=== PATIENT | male | born 1960 | race African-American/Black ===

== ENCOUNTER 2017-06-18 13:37 | Emergency (ER) | payer OTHER ==
[2017-06-18] MEDS ORDERED: MORPHINE SULFATE 4 MG/ML DISP.SYRIN. (15:04)
[2017-06-18] MEDS ORDERED: ONDANSETRON PF 4 MG/2 ML VIAL. (15:04)
[2017-06-18] MEDS: DIPHTH,PERTUSS(ACELL),TET TOX 0.5 ML DISP.SYRIN. VAX IM (15:20)
[2017-06-18] MEDS: ONDANSETRON PF 4 MG/2 ML VIAL. IV (15:21)
[2017-06-18] MEDS: MORPHINE SULFATE 4 MG/ML DISP.SYRIN. IV (15:22)
== END 2017-06-18 15:27 | disposition short-term general hospital (02) ==
LOC: ER 13:37
DX: S05.31XA Ocular laceration without prolapse or loss of intraocular tissue, right eye, initial encounter (principal); S01.111A Laceration without foreign body of right eyelid and periocular area, initial encounter; S01.81XA Laceration without foreign body of other part of head, initial encounter; Y08.89XA Assault by other specified means, initial encounter; Y93.89 Activity, other specified; Y92.89 Other specified places as the place of occurrence of the external cause; Y99.8 Other external cause status
CPT/HCPCS: 90471; 90715; 96374; 96375; 99285-25; J2270; J2405